=== PATIENT | male | born 1970 | race Caucasian/White ===

== ENCOUNTER 2023-03-06 06:30 | Emergency (ER) | payer BC ==
[2023-03-06] MEDS ORDERED: Sodium Chloride 0.9% 1,000 ML IV ONE (06:43)
[2023-03-06] MEDS ORDERED: Sodium Chloride 0.9% 10 ML Syringe FLUSH PRN (06:43)
[2023-03-06] MEDS ORDERED: Sodium Chloride 0.9% 2.5 ML Syringe FLUSH PRN (06:43)
[2023-03-06] MEDS ORDERED: predniSONE 10 MG Tab PO ONE (06:44)
[2023-03-06] MEDS ORDERED: Magnesium Sulfate (4.06 MEQ/ML) 5 GM/10 ML SDV IV STA (06:45)
[2023-03-06] MEDS ORDERED: Albuterol/Ipratropium 3.0-0.5 MG/3 ML Neb Soln NEB ONE (06:46)
[2023-03-06 06:49] LABS: BASOPHILS ABSOLUTE AUTO 0.04 K/uL (0.00-0.20); BASOPHILS PERCENT AUTO 0.6 % (0.0-1.0); EOSINOPHILS ABSOLUTE AUTO 0.22 K/uL (0.00-0.45); EOSINOPHILS PERCENT AUTO 3.1 % (0.0-6.0); HEMOGLOBIN 18.5 g/dL (14.0-18.0); IMMATURE GRAN ABSOLUTE AUTO 0.04 K/uL (0.00-0.05); IMMATURE GRAN PERCENT AUTO 0.6 % (0.0-0.4); LYMPHOCYTES ABSOLUTE AUTO 1.08 K/uL (1.00-4.80); LYMPHOCYTES PERCENT AUTO 15.3 % (24.0-44.0); MEAN CORPUSCULAR HEMOGLOBIN 26.9 pg (28.0-32.0); MEAN CORPUSCULAR HGB CONC 31.9 g/dL (32.0-36.0); MEAN CORPUSCULAR VOLUME 84.4 fL (83.0-99.0); MEAN PLATELET VOLUME 9.4 fL (9.4-12.4); MONOCYTES ABSOLUTE AUTO 0.77 K/uL (0.00-0.80); MONOCYTES PERCENT AUTO 10.9 % (0.0-8.0); NEUTROPHILS ABSOLUTE AUTO 4.91 K/uL (1.80-7.70); NEUTROPHILS PERCENT AUTO 69.5 % (41.0-71.0); PLATELET COUNT,PLT 163 K/uL (150-400); RED BLOOD CELL COUNT 6.87 M/uL (4.52-5.90); WHITE BLOOD CELL COUNT,WBC 7.06 K/uL (3.9-11.3)
[2023-03-06] MEDS ORDERED: Magnesium Sulfate/Water 50 ML ONE (06:54)
[2023-03-06] MEDS ORDERED: Magnesium Sulfate/Water 2 GM in Premix Bag 1 BAG IV ONE (07:00)
[2023-03-06 07:19] LABS: A/G RATIO 0.8 (0.9-1.6); ALBUMIN 3.6 g/dL (3.4-5.0); BILIRUBIN TOTAL 0.7 mg/dL (0.2-1.0); CALCIUM 8.7 mg/dL (8.5-10.1); CREATININE 1.2 mg/dL (0.8-1.3); EST CRCL DRUG DOSING (CG) 73.51 mL/min; POTASSIUM,K 4.1 mmol/L (3.5-5.1); PROTEIN TOTAL,TP 8.1 g/dL (6.4-8.2)
[2023-03-06 07:26] LABS: CORONAVIRUS COVID-19 NAA NEGATIVE (NEGATIVE); INFLUENZA A NAA NEGATIVE (NEGATIVE); INFLUENZA B NAA NEGATIVE (NEGATIVE); RESPIRATORY SYNCYTIAL VIR NAA POSITIVE (NEGATIVE)
[2023-03-06] MEDS ORDERED: Acetaminophen 500 MG Tab PO ONE (08:26)
== END 2023-03-06 11:34 | disposition home or self-care (01) ==
LOC: MW.ED 06:30
DX: J45.909 Unspecified asthma, uncomplicated (principal); I10 Essential (primary) hypertension; Z20.822 Contact with and (suspected) exposure to COVID-19; Z88.0 Allergy status to penicillin; Z88.1 Allergy status to other antibiotic agents; Z88.8 Allergy status to other drugs, medicaments and biological substances; Z79.899 Other long term (current) drug therapy
CPT/HCPCS: 0241U; 36415; 71045; 80053; 83735; 83880; 84484; 85025; 85379; 93005; 96361; 96365; 99285; A9270; J3475; J3490; J7030; J7620-GY

== ENCOUNTER 2023-10-30 02:53 | Emergency (ER) | payer BC | END 2023-10-30 04:00 | disposition home or self-care (01) | LOC: MW.ED 02:53 | DX: S87.01XA Crushing injury of right knee, initial encounter (principal); I10 Essential (primary) hypertension; E78.00 Pure hypercholesterolemia, unspecified; J45.909 Unspecified asthma, uncomplicated; E11.9 Type 2 diabetes mellitus without complications; Z79.899 Other long term (current) drug therapy; Z79.891 Long term (current) use of opiate analgesic; Z88.1 Allergy status to other antibiotic agents; Z88.0 Allergy status to penicillin; Z88.8 Allergy status to other drugs, medicaments and biological substances | CPT/HCPCS: 73562-26-RT; 73562-RT; 73590-26-RT; 73590-RT; 99283 ==

== ENCOUNTER 2023-11-11 11:47 | Emergency (ER) | payer BC | END 2023-11-11 13:37 | disposition home or self-care (01) | LOC: MW.ED 11:47 | DX: S80.11XD Contusion of right lower leg, subsequent encounter (principal); I10 Essential (primary) hypertension; E78.00 Pure hypercholesterolemia, unspecified; E11.9 Type 2 diabetes mellitus without complications; F17.210 Nicotine dependence, cigarettes, uncomplicated; Z88.0 Allergy status to penicillin; Z88.1 Allergy status to other antibiotic agents; Z75.8 Other problems related to medical facilities and other health care; Z88.8 Allergy status to other drugs, medicaments and biological substances; Z79.890 Hormone replacement therapy; Z79.899 Other long term (current) drug therapy; W22.8XXD Striking against or struck by other objects, subsequent encounter | CPT/HCPCS: 99283 ==

== ENCOUNTER 2023-11-21 17:55 | Emergency (ER) | payer BC ==
[2023-11-21 18:25] LABS: BASOPHILS ABSOLUTE AUTO 0.08 K/uL (0.00-0.20); BASOPHILS PERCENT AUTO 1.1 % (0.0-1.0); EOSINOPHILS ABSOLUTE AUTO 0.43 K/uL (0.00-0.45); EOSINOPHILS PERCENT AUTO 5.9 % (0.0-6.0); HEMATOCRIT 57.2 % (42.0-52.0); HEMOGLOBIN 19.7 g/dL (14.0-18.0); IMMATURE GRAN ABSOLUTE AUTO 0.04 K/uL (0.00-0.05); IMMATURE GRAN PERCENT AUTO 0.5 % (0.0-0.4); LYMPHOCYTES ABSOLUTE AUTO 2.07 K/uL (1.00-4.80); LYMPHOCYTES PERCENT AUTO 28.3 % (24.0-44.0); MEAN CORPUSCULAR HEMOGLOBIN 29.8 pg (28.0-32.0); MEAN CORPUSCULAR HGB CONC 34.4 g/dL (32.0-36.0); MEAN CORPUSCULAR VOLUME 86.4 fL (83.0-99.0); MEAN PLATELET VOLUME 10.2 fL (9.4-12.4); MONOCYTES ABSOLUTE AUTO 0.63 K/uL (0.00-0.80); MONOCYTES PERCENT AUTO 8.6 % (0.0-8.0); NEUTROPHILS ABSOLUTE AUTO 4.07 K/uL (1.80-7.70); NEUTROPHILS PERCENT AUTO 55.6 % (41.0-71.0); PLATELET COUNT,PLT 156 K/uL (150-400); RED BLOOD CELL COUNT 6.62 M/uL (4.52-5.90); WHITE BLOOD CELL COUNT,WBC 7.32 K/uL (3.9-11.3)
[2023-11-21 18:48] LABS: A/G RATIO 1.1 (0.9-1.6); ALBUMIN 3.9 g/dL (3.4-5.0); BILIRUBIN TOTAL 0.7 mg/dL (0.2-1.0); CALCIUM 8.2 mg/dL (8.5-10.1); CREATININE 1.2 mg/dL (0.8-1.3); EST CRCL DRUG DOSING (CG) 73.51 mL/min; INR 1.06 (0.86-1.11); MAGNESIUM 2.1 mg/dL (1.8-2.4); POTASSIUM,K 3.6 mmol/L (3.5-5.1); PROTEIN TOTAL,TP 7.6 g/dL (6.4-8.2); PTT,PARTIAL THROMBOPLSTIN TIME 32.8 SEC (23.9-30.7)
[2023-11-21 19:04] LABS: APPEARANCE,URINE CLEAR; BILIRUBIN,URINE NEGATIVE (NEGATIVE); COLOR,URINE YELLOW; GLUCOSE,URINE NEGATIVE (NEGATIVE); KETONES,URINE NEGATIVE (NEGATIVE); LEUKOCYTE ESTERASE,URINE NEGATIVE (NEGATIVE); NITRITE,URINE NEGATIVE (NEGATIVE); OCCULT BLOOD,URINE NEGATIVE (NEGATIVE); PROTEIN,URINE NEGATIVE (NEGATIVE); UROBILINOGEN,URINE 0.2 EU/dL (<2.0)
[2023-11-21] MEDS: Labetalol 100 MG/20 ML MDV IVPUSH ONE (19:33)
== END 2023-11-21 21:07 | disposition home or self-care (01) ==
LOC: MW.ED 17:55
DX: I10 Essential (primary) hypertension (principal); E78.00 Pure hypercholesterolemia, unspecified; E11.9 Type 2 diabetes mellitus without complications; F17.210 Nicotine dependence, cigarettes, uncomplicated; Z75.8 Other problems related to medical facilities and other health care; Z88.1 Allergy status to other antibiotic agents; Z88.8 Allergy status to other drugs, medicaments and biological substances; Z88.0 Allergy status to penicillin; Z79.890 Hormone replacement therapy; Z79.899 Other long term (current) drug therapy
CPT/HCPCS: 36415; 71046; 80053; 81003; 83735; 84484; 85025; 85610; 85730; 93005; 96374; 99284; J1921; 93010

== ENCOUNTER 2024-03-06 13:38 | Emergency (ER) | payer BC ==
[2024-03-06] MEDS: Sodium Chloride 0.9% 1,000 ML IV ONE (14:20)
[2024-03-06 14:30] LABS: BASOPHILS ABSOLUTE AUTO 0.03 K/uL (0.00-0.20); BASOPHILS PERCENT AUTO 0.3 % (0.0-1.0); EOSINOPHILS ABSOLUTE AUTO 0.24 K/uL (0.00-0.45); EOSINOPHILS PERCENT AUTO 2.5 % (0.0-6.0); HEMATOCRIT 50.1 % (42.0-52.0); HEMOGLOBIN 17.6 g/dL (14.0-18.0); IMMATURE GRAN ABSOLUTE AUTO 0.01 K/uL (0.00-0.05); IMMATURE GRAN PERCENT AUTO 0.1 % (0.0-0.4); LYMPHOCYTES ABSOLUTE AUTO 0.97 K/uL (1.00-4.80); LYMPHOCYTES PERCENT AUTO 10.1 % (24.0-44.0); MEAN CORPUSCULAR HEMOGLOBIN 30.4 pg (28.0-32.0); MEAN CORPUSCULAR HGB CONC 35.1 g/dL (32.0-36.0); MEAN CORPUSCULAR VOLUME 86.5 fL (83.0-99.0); MEAN PLATELET VOLUME 9.7 fL (9.4-12.4); MONOCYTES ABSOLUTE AUTO 0.52 K/uL (0.00-0.80); MONOCYTES PERCENT AUTO 5.4 % (0.0-8.0); NEUTROPHILS ABSOLUTE AUTO 7.86 K/uL (1.80-7.70); NEUTROPHILS PERCENT AUTO 81.6 % (41.0-71.0); PLATELET COUNT,PLT 129 K/uL (150-400); RED BLOOD CELL COUNT 5.79 M/uL (4.52-5.90); WHITE BLOOD CELL COUNT,WBC 9.63 K/uL (3.9-11.3)
[2024-03-06 15:03] LABS: ALBUMIN 3.7 g/dL (3.4-5.0); BILIRUBIN TOTAL 0.7 mg/dL (0.2-1.0); CALCIUM 8.8 mg/dL (8.5-10.1); CREATININE 1.1 mg/dL (0.8-1.3); EST CRCL DRUG DOSING (CG) 79.27 mL/min; MAGNESIUM 1.8 mg/dL (1.8-2.4); POTASSIUM,K 3.5 mmol/L (3.5-5.1); PROTEIN TOTAL,TP 7.4 g/dL (6.4-8.2)
[2024-03-06] MEDS: Levofloxacin 750 MG Tab PO STA (15:59)
== END 2024-03-06 16:01 | disposition home or self-care (01) ==
LOC: MW.ED 13:38
DX: J18.9 Pneumonia, unspecified organism (principal); I10 Essential (primary) hypertension; J45.909 Unspecified asthma, uncomplicated; E11.9 Type 2 diabetes mellitus without complications; Z88.0 Allergy status to penicillin; Z88.1 Allergy status to other antibiotic agents; Z88.8 Allergy status to other drugs, medicaments and biological substances; Z79.51 Long term (current) use of inhaled steroids; Z79.4 Long term (current) use of insulin; Z79.890 Hormone replacement therapy; Z79.899 Other long term (current) drug therapy; Z75.8 Other problems related to medical facilities and other health care
CPT/HCPCS: 36415; 71046; 80053; 83735; 85025; 87428; 99284; A9270

== ENCOUNTER 2024-03-28 11:26 | Observation (INO) | payer BC ==
[2024-03-28] MEDS: Aspirin 81 MG Tab.Chew PO ONE (12:08)
[2024-03-28] MEDS: Sodium Chloride 0.9% 10 ML Syringe FLUSH PRN (12:08)
[2024-03-28] MEDS: Nitroglycerin 0.4 MG Tab.SL SL PRN (12:08)
[2024-03-28 12:14] LABS: BASOPHILS ABSOLUTE AUTO 0.05 K/uL (0.00-0.20); BASOPHILS PERCENT AUTO 0.6 % (0.0-1.0); EOSINOPHILS ABSOLUTE AUTO 0.26 K/uL (0.00-0.45); EOSINOPHILS PERCENT AUTO 3.3 % (0.0-6.0); HEMATOCRIT 51.9 % (42.0-52.0); HEMOGLOBIN 18.1 g/dL (14.0-18.0); IMMATURE GRAN ABSOLUTE AUTO 0.02 K/uL (0.00-0.05); IMMATURE GRAN PERCENT AUTO 0.3 % (0.0-0.4); LYMPHOCYTES ABSOLUTE AUTO 2.09 K/uL (1.00-4.80); LYMPHOCYTES PERCENT AUTO 26.7 % (24.0-44.0); MEAN CORPUSCULAR HEMOGLOBIN 30.6 pg (28.0-32.0); MEAN CORPUSCULAR HGB CONC 34.9 g/dL (32.0-36.0); MEAN CORPUSCULAR VOLUME 87.7 fL (83.0-99.0); MEAN PLATELET VOLUME 10.1 fL (9.4-12.4); MONOCYTES ABSOLUTE AUTO 0.61 K/uL (0.00-0.80); MONOCYTES PERCENT AUTO 7.8 % (0.0-8.0); NEUTROPHILS ABSOLUTE AUTO 4.81 K/uL (1.80-7.70); NEUTROPHILS PERCENT AUTO 61.3 % (41.0-71.0); PLATELET COUNT,PLT 179 K/uL (150-400); RED BLOOD CELL COUNT 5.92 M/uL (4.52-5.90); WHITE BLOOD CELL COUNT,WBC 7.84 K/uL (3.9-11.3)
[2024-03-28] MEDS: Heparin Sodium 5,000 Units/ML Vial IVPUSH ONE (12:15)
[2024-03-28] MEDS ORDERED: Nitroglycerin/D5W 25 MG/250 ML BOTTLE IV SCH (12:15)
[2024-03-28] MEDS: Heparin Sodium/0.45% NaCl 25,000 UNITS/250 ML BAG IV SCH (12:18)
[2024-03-28] MEDS: Labetalol 100 MG/20 ML MDV IVPUSH ONE ×2 (12:28→14:07)
[2024-03-28 12:31] LABS: INR 1.07 (0.86-1.11); PTT,PARTIAL THROMBOPLSTIN TIME 32.8 SEC (23.9-30.7)
[2024-03-28 12:55] LABS: BILIRUBIN TOTAL 0.8 mg/dL (0.2-1.0); CALCIUM 9.1 mg/dL (8.5-10.1); CARBON DIOXIDE,CO2 27.2 mmol/L (21.0-32.0); CREATININE 1.2 mg/dL (0.8-1.3); EST CRCL DRUG DOSING (CG) 72.66 mL/min; MAGNESIUM 2.2 mg/dL (1.8-2.4); POTASSIUM,K 3.9 mmol/L (3.5-5.1); PROTEIN TOTAL,TP 7.9 g/dL (6.4-8.2)
[2024-03-28] MEDS: Ondansetron 4 MG/2 ML SDV IVPUSH ONE (15:39)
[2024-03-28] MEDS: Morphine 2 MG/ML SYRINGE IVPUSH ONE (15:39)
[2024-03-28] MEDS: Lisinopril 10 MG Tab PO ONE (16:09)
[2024-03-28] MEDS: amLODIPine 5 MG Tab PO ONE (16:09)
[2024-03-28] MEDS: hydrALAZINE 20 MG/ML SDV IVPUSH ONE (17:25)
[2024-03-28] MEDS: Famotidine 20 MG/2 ML SDV IVPUSH ONE (17:43)
[2024-03-28] MEDS: diphenhydrAMINE 50 MG/ML SDV IVPUSH ONE (17:43)
[2024-03-28] MEDS ORDERED: hydrALAZINE 20 MG/ML SDV IVPUSH PRN (18:20)
[2024-03-28] MEDS ORDERED: Sennosides/Docusate Sodium 50-8.6 MG Tab PO PRN (18:20)
[2024-03-28] MEDS ORDERED: Ondansetron 4 MG Tab.DIS PO PRN (18:20)
[2024-03-28] MEDS ORDERED: Albuterol/Ipratropium 3.0-0.5 MG/3 ML Neb Soln NEB PRN (18:20)
[2024-03-28] MEDS ORDERED: Polyethylene Glycol 3350 Powder 17 GM Packet PO PRN (18:20)
[2024-03-28] MEDS ORDERED: Melatonin 3 MG Tab PO PRN (18:20)
[2024-03-28] MEDS ORDERED: Non-Formulary Medication 1 Each (Albuterol Sulfate 8.5 GM Hfa.Aer.Ad) IH PRN (18:30)
[2024-03-28] MEDS ORDERED: Glucagon,Human Recombinant 1 MG Vial IM PRN (18:32)
[2024-03-28] MEDS ORDERED: 50% Dextrose in Water 50 ML Syringe IVPUSH PRN (18:32)
[2024-03-28] MEDS ORDERED: Albuterol 8 GM Inhaler INH PRN (20:27)
[2024-03-28] MEDS: Acetaminophen 325 MG Tab PO PRN (20:52)
[2024-03-28] MEDS: cloNIDine 0.1 MG Tab PO SCH (20:53)
[2024-03-28] MEDS: amLODIPine 5 MG Tab PO SCH (20:54)
[2024-03-28] MEDS: Heparin Sodium 5,000 Units/ML Vial SUBCUT SCH ×2 (20:55→21:31)
[2024-03-28] MEDS ORDERED: Non-Formulary Medication 1 Each (Amlodipine 10 MG Tablet) PO SCH (21:00)
[2024-03-28] MEDS: Carvedilol 6.25 MG Tab PO SCH (21:07)
[2024-03-28] MEDS: Metoprolol Tartrate 5 MG/5 ML SDV IVPUSH PRN (21:51)
[2024-03-28] MEDS: LORazepam 2 MG/ML SDV IVPUSH ONE (23:23)
[2024-03-29] MEDS: NIFEdipine 30 MG Tab.ER PO ONE (00:01)
[2024-03-29] MEDS: LORazepam 2 MG/ML SDV IVPUSH ONE (00:01)
[2024-03-29] MEDS ORDERED: niCARdipine/Normal Saline 20 MG in Premix Bag 1 BAG IV SCH (01:15)
[2024-03-29] MEDS: NIFEdipine 10 MG Cap PO SCH (03:36)
[2024-03-29] MEDS: Ketorolac 30 MG/ML SDV IVPUSH ONE (05:29)
[2024-03-29 05:44] LABS: BASOPHILS ABSOLUTE AUTO 0.06 K/uL (0.00-0.20); BASOPHILS PERCENT AUTO 0.7 % (0.0-1.0); EOSINOPHILS ABSOLUTE AUTO 0.12 K/uL (0.00-0.45); EOSINOPHILS PERCENT AUTO 1.5 % (0.0-6.0); HEMATOCRIT 56.2 % (42.0-52.0); HEMOGLOBIN 19.7 g/dL (14.0-18.0); IMMATURE GRAN ABSOLUTE AUTO 0.03 K/uL (0.00-0.05); IMMATURE GRAN PERCENT AUTO 0.4 % (0.0-0.4); LYMPHOCYTES ABSOLUTE AUTO 1.32 K/uL (1.00-4.80); LYMPHOCYTES PERCENT AUTO 16.1 % (24.0-44.0); MEAN CORPUSCULAR HEMOGLOBIN 30.4 pg (28.0-32.0); MEAN CORPUSCULAR HGB CONC 35.1 g/dL (32.0-36.0); MEAN CORPUSCULAR VOLUME 86.6 fL (83.0-99.0); MONOCYTES ABSOLUTE AUTO 0.51 K/uL (0.00-0.80); MONOCYTES PERCENT AUTO 6.2 % (0.0-8.0); NEUTROPHILS ABSOLUTE AUTO 6.17 K/uL (1.80-7.70); NEUTROPHILS PERCENT AUTO 75.1 % (41.0-71.0); PLATELET COUNT,PLT 197 K/uL (150-400); RED BLOOD CELL COUNT 6.49 M/uL (4.52-5.90); WHITE BLOOD CELL COUNT,WBC 8.21 K/uL (3.9-11.3)
[2024-03-29 06:37] LABS: ALBUMIN 4.3 g/dL (3.4-5.0); BILIRUBIN TOTAL 1.2 mg/dL (0.2-1.0); CALCIUM 9.3 mg/dL (8.5-10.1); CARBON DIOXIDE,CO2 20.9 mmol/L (21.0-32.0); CREATININE 1.1 mg/dL (0.8-1.3); EST CRCL DRUG DOSING (CG) 79.27 mL/min; POTASSIUM,K 3.6 mmol/L (3.5-5.1); PROTEIN TOTAL,TP 8.7 g/dL (6.4-8.2)
[2024-03-29] MEDS: Ondansetron 4 MG/2 ML SDV IVPUSH ONE (06:42)
[2024-03-29] MEDS: Levothyroxine 25 MCG Tab PO SCH (06:42)
[2024-03-29] MEDS: Levothyroxine 112 MCG Tab PO SCH (06:42)
[2024-03-29] MEDS ORDERED: Levothyroxine 125 MCG Tab PO SCH (07:30)
[2024-03-29] MEDS: Insulin Aspart 100 Units/ML 3 ML Pen SUBCUT SCH (08:08)
[2024-03-29] MEDS ORDERED: Buprenorphine/Naloxone 8-2 MG Tab.SL SL SCH ×4 (09:00→21:00)
[2024-03-29] MEDS ORDERED: TESTOSTERONE CYPIONATE 200 MG/ML IM SCH (09:15)
[2024-03-29] MEDS: Lisinopril 10 MG Tab PO SCH (09:43)
[2024-03-29] MEDS: Hydrocortisone 20 MG Tab PO SCH (09:51)
[2024-03-29] MEDS: Buprenorphine/Naloxone 8-2 MG Tab.SL SL ONE (09:52)
[2024-03-29] MEDS ORDERED: Sertraline 100 MG Tab PO SCH (21:00)
[2024-03-30] MEDS ORDERED: Non-Formulary Medication 1 Each (Levothyroxine Sodium [Levothyroxine Sodium] 137 MCG Table PO SCH (07:30)
== END 2024-03-29 10:55 | disposition home or self-care (01) ==
LOC: MW.ED 11:26 → MW.MS 17:00 → MW.ICU 23:40
PROVIDERS: ADMIT Family Medicine; ATTEND Family Medicine
DX: I16.1 Hypertensive emergency (principal); R07.9 Chest pain, unspecified; R06.02 Shortness of breath; I10 Essential (primary) hypertension; I20.0 Unstable angina; E78.00 Pure hypercholesterolemia, unspecified; E11.9 Type 2 diabetes mellitus without complications; J45.909 Unspecified asthma, uncomplicated; R79.89 Other specified abnormal findings of blood chemistry; T46.5X5A Adverse effect of other antihypertensive drugs, initial encounter; F17.210 Nicotine dependence, cigarettes, uncomplicated; Z79.4 Long term (current) use of insulin; Z88.8 Allergy status to other drugs, medicaments and biological substances; Z88.0 Allergy status to penicillin; Z79.899 Other long term (current) drug therapy; Z79.890 Hormone replacement therapy; Z91.041 Radiographic dye allergy status
CPT/HCPCS: 36415; 70450; 71045; 80053; 82947; 83690; 83735; 83880; 84484; 85025; 85610; 85730; 93005; 93306; 96365; 96366; 96375; 99285; A9270; J0360; J0574; J1200; J1644; J1885; J1920; J2060; J3490; 96372; 96376; G0378